=== PATIENT | male | born 1965 | race Caucasian/White ===

== ENCOUNTER 2018-02-25 17:13 | Emergency (ER) | payer OTHER ==
[2018-02-25 17:32] VITALS: RESP 18; TEMP 98.1
[2018-02-25 18:15] VITALS: BMI 29.7
[2018-02-25] MEDS ORDERED: Sodium Chloride 0.9% 1,000 ML IV STA (18:17)
--- NOTE | 2018-02-25 18:17 | ED PDOC ---
Arrival/HPI - General Time Seen by Provider: 02/25/18 18:11 Historian: Patient - History of Present Illness Narrative History of Present Illness (Text): 02/25/18 18:12 52 y/o male, pmh including cholecystitis/IBS, nkda, c/o epigastric abdominal pain x 1 day. Pt. stated that he started a new medication "Viberzi" for his IBS diarrhea yesterday, took a dose yesterday and today, developed the epigastric pain, called DR. Hernandez which told him to come to the ER to check his CMP panel. Pt. concerning about he might have pancreatitis. Pt. has no chest pain or shortness of breath, no flank pain, no urinary symptoms, no change in vision, no neck pain, no dizziness, no wheezing, no diarrhea, no nausea or vomiting, no other medical or psychological complaints. Past Medical History - Provider Review Nursing Documentation Reviewed: Yes Family/Social History - Physician Review Nursing Documentation Reviewed: Yes Family/Social History: Unknown Family HX Allergies/Home Meds Allergies/Adverse Reactions: Allergies No Known Allergies Allergy (Verified 02/25/18 18:15) Review of Systems - Review of Systems Constitutional: absent: Fatigue, Fevers Eyes: absent: Vision Changes ENT: absent: Hearing Changes Respiratory: absent: SOB, Cough Cardiovascular: absent: Chest Pain Gastrointestinal: Abdominal Pain. absent: Diarrhea, Nausea, Vomiting Musculoskeletal: absent: Arthralgias, Back Pain Skin: absent: Rash, Pruritis Neurological: absent: Headache, Dizziness Psychiatric: absent: Anxiety, Depression, Suicidal Ideation Physical Exam Vital Signs Reviewed: Yes Vital Signs Temp Pulse Resp BP Pulse Ox 02/25/18 17:31 98.1 F 65 18 141/94 H 99 Temperature: Afebrile Blood Pressure: Hypertensive Pulse: Regular Respiratory Rate: Normal Appearance: Positive for: Well-Appearing, Non-Toxic, Comfortable Pain Distress: Mild Mental Status: Positive for: Alert and Oriented X 3 - Systems Exam Head: Present: Atraumatic, Normocephalic Pupils: Present: PERRL Extroacular Muscles: Present: EOMI Conjunctiva: Present: Normal Mouth: Present: Moist Mucous Membranes Neck: Present: Normal Range of Motion Respiratory/Chest: Present: Clear to Auscultation, Good Air Exchange. No: Respiratory Distress, Accessory Muscle Use Cardiovascular: Present: Regular Rate and Rhythm, Normal S1, S2. No: Murmurs Abdomen: No: Tenderness, Distention, Peritoneal Signs, Rebound, Guarding Back: Present: Normal Inspection. No: CVA Tenderness, Midline Tenderness, Paraspinal Tenderness Upper Extremity: Present: Normal Inspection. No: Cyanosis, Edema Lower Extremity: Present: Normal Inspection. No: Edema Neurological: Present: GCS=15, CN II-XII Intact, Speech Normal, Motor Func Grossly Intact, Memory Normal Skin: Present: Warm, Dry, Normal Color. No: Rashes Psychiatric: Present: Alert, Oriented x 3, Normal Insight, Normal Concentration Medical Decision Making ED Course and Treatment: 02/25/18 18:21 Differential: gastritis vs. pancreatitis vs. fatty liver vs. liver failure -Labs/lipase/ua -abdominal sonogram -IVF/pepcid -Observe and reassess 02/25/18 20:39 -abdominal sonogram: Mild biliary ductal dilatation which may be within normal limits for post cholecystectomy state. Correlate with laboratory values. Consider MRCP if warranted. Incidental/non-acute findings are described above. -Labs are non-significant -LFT and lipase within normal limit. -UA show no UTI. -Case/labs/radiology result discussed with Dr. Ellsworth, recommend to discharge home. -Case/labs/radiology result discussed with Dr. Hernandez, PMD, recommend to discharge home and will see the patient tomorrow morning for follow up. -All labs/radiology result discussed with the patient, agreed on the treatment and follow up plan. -Pt.'s abdomen is soft, non-tender, no guarding, eating and drinking well, will discharge home. -Pt. has no pain now, talking on the phone, no facial expression of pain or discomfort. -Discharge home with pepcid, education on follow up with your own pmd Dr. Hernandez tomorrow, return to the ER for any new or worsening signs or symptoms. - Lab Interpretations Lab Results: 02/25/18 18:38 02/25/18 18:38 Lab Results 02/25/18 20:22: Urine Color Colorless, Urine Appearance Clear, Urine pH 7.0, Ur Specific [place] <= 1.005, Urine Protein Negative, Urine Glucose (UA) Negative, Urine Ketones Negative, Urine Blood Trace-lysed H, Urine Nitrate Negative, Urine Bilirubin Negative, Urine Urobilinogen 0.2, Ur Leukocyte Esterase Negative , Urine RBC Negative, Urine WBC Negative, Ur Epithelial Cells None, Urine Bacteria Neg 02/25/18 18:38: WBC 8.1, RBC 5.25, Hgb 15.4, Hct 42.9, MCV 81.7, MCH 29.3, MCHC 35.9, RDW 14.2, Plt Count 270, MPV 9.5, Gran % 42.1 L, Lymph % (Auto) 48.8 H, [place] % (Auto) 6.3 H, Eos % (Auto) 2.4, Baso % (Auto) 0.4, Gran # 3.40, Lymph # ( Auto) 3.9 H, [place] # (Auto) 0.5, Eos # (Auto) 0.2, Baso # (Auto) 0.03 02/25/18 18:38: Sodium 142, Potassium 3.9, Chloride 102, Carbon Dioxide 31, Anion Gap 13, BUN 16, Creatinine 1.1, Est GFR ( Amer) > 60, Est GFR (Non- Af Amer) > 60, Random Glucose 91, Calcium 9.4, Total Bilirubin 0.9, AST 35, ALT 32, Alkaline Phosphatase 82, Total Protein 7.8, Albumin 4.5, Globulin 3.3, Albumin/Globulin Ratio 1.3, Lipase 56 I have reviewed the lab results: Yes - RAD Interpretation Radiology Orders: 02/25/18 18:17 ABDOMEN COMPLETE [US] Stat Liver: Fatty infiltration. No definite mass. No intrahepatic ductal dilatation. Gallbladder: Cholecystectomy. Common bile duct: Up to 0.74 cm in diameter. No stones. Pancreas: Unremarkable as visualized. Kidneys: Normal echogenicity. No significant hydronephrosis. Spleen: No splenomegaly. Aorta: Unremarkable. No aneurysm. Inferior vena cava: Unremarkable. Free fluid: No significant free fluid. IMPRESSION: 1. Mild biliary ductal dilatation which may be within normal limits for post cholecystectomy state. Correlate with laboratory values. Consider MRCP if warranted. 2. Incidental/non-acute findings are described above. Thank you for allowing us to participate in the care of your patient. Dictated and Authenticated by: Maynor Slaughter MD 02/25/2018 7:57 PM Eastern Time ([place] & [place]) [employer] Manager: Radiologist - Medication Orders Current Medication Orders: Discontinued Medications Famotidine (Pepcid) 20 mg IVP STAT STA Stop: 02/25/18 18:18 Last Admin: 02/25/18 19:38 Dose: 20 mg IVP Administration Document 02/25/18 19:38 GMD (Rec: 02/25/18 19:39 GMD [id number]) Charges for Administration # of IVP Administrations 1 Sodium Chloride (Sodium Chloride 0.9%) 1,000 mls @ 999 mls/hr IV .Q1H1M STA Stop: 02/25/18 19:17 Last Admin: 02/25/18 19:39 Dose: 999 mls/hr eMAR Start Stop Document 02/25/18 19:39 GMD (Rec: 02/25/18 19:39 GMD [id number]) Intravenous Solution Start Date 02/25/18 Start Time 19:39 End Date 02/25/18 End time 20:40 Total Infusion Time 61 - PA / [employer] / Resident Statement MD/DO has reviewed & agrees with the documentation as recorded. Disposition/Present on Arrival - Present on Arrival Any Indicators Present on Arrival: No History of DVT/PE: No History of Uncontrolled Diabetes: No Urinary Catheter: No History of Decub. Ulcer: No - Disposition Have Diagnosis and Disposition been Completed?: Yes Diagnosis: General medical examination Disposition: HOME/ ROUTINE Disposition Time: 20:44 Patient Plan: Discharge Condition: GOOD Additional Instructions: -Discharge home with pepcid, education on follow up with your own pmd Dr. Hernandez tomorrow, return to the ER for any new or worsening signs or symptoms. Prescriptions: Famotidine [Pepcid] 20 mg PO BID #20 tab Referrals: Fernando Hernandez MD [Primary Care Provider] - Follow up with primary Nehemias Roberson MD [Staff Provider] - Follow up with primary Forms: WORK NOTE
[2018-02-25 19:09] LABS: BASO # 0.03 K/mm3 (0.0-2.0); BASO % 0.4 % (0.0-3.0); EOS # 0.2 (0.0-0.7); EOS % 2.4 % (1.5-5.0); GRAN # 3.4 (1.4-6.5); GRAN % 42.1 % (50.0-68.0); HEMOGLOBIN 15.4 g/dL (14.0-18.0); LYMPH # 3.9 (1.2-3.4); LYMPH % 48.8 % (22.0-35.0); MEAN CELL VOLUME 81.7 fl (80.0-105.0); MEAN CORPUSCULAR HEMOGLOBIN 29.3 pg (25.0-35.0); MEAN CORPUSCULAR HGB CONC 35.9 g/dl (31.0-37.0); MEAN PLATELET VOLUME 9.5 fl (7.0-11.0); MONO # 0.5 (0.1-0.6); MONO % 6.3 % (1.0-6.0); RBC 5.25 10^6/uL (3.5-6.1); RED CELL DISTRIBUTION WIDTH 14.2 % (11.5-14.5); WHITE BLOOD COUNT 8.1 10^3/ul (4.5-11.0)
[2018-02-25 19:15] LABS: ALB/GLOB RATIO 1.3 (1.1-1.8); ALBUMIN 4.5 g/dL (3.0-4.8); ALT/SGPT 32 U/L (7-56); AST/SGOT 35 U/L (17-59); BLOOD UREA NITROGEN 16 mg/dL (7-21); CALCIUM 9.4 mg/dL (8.4-10.5); GFR AFRICAN-AMERICAN > 60; GFR NON-AFRICAN AMERICAN > 60; LIPASE 56 U/L (23-300)
[2018-02-25 20:28] LABS: URINE BILIRUBIN NEGATIVE (NEGATIVE); URINE BLOOD TRACE-LYSED (NEGATIVE); URINE GLUCOSE (UA) NEGATIVE (NEGATIVE); URINE LEUKOCYTE ESTERASE NEGATIVE Leu/uL (NEGATIVE); URINE PROTEIN NEGATIVE mg/dL (<30 mg/dL); URINE UROBILINOGEN 0.2 E.U./dL (<1 E.U./dL)
[2018-02-25 20:29] LABS: URINE APPEARANCE CLEAR (CLEAR); URINE COLOR COLORLESS (YELLOW)
[2018-02-25 20:35] LABS: URINE BACTERIA NEG (NEG); URINE RBC NEGATIVE /hpf (0-2); URINE WBC NEGATIVE /hpf (0-6)
[2018-02-25 20:57] VITALS: BP 131/78; PULSE 68; O2SAT 98
--- NOTE | 2018-02-26 10:30 | US ---
Date of service: 02/25/2018 HISTORY: RUQ pain x 1 day COMPARISON: None. TECHNIQUE: Grayscale imaging was performed. FINDINGS: LIVER: Measures 17.0 cm. There is diffuse increased echogenicity of the liver parenchyma. No mass. No intrahepatic bile duct dilatation. GALLBLADDER: Surgically absent COMMON BILE DUCT: Measures 7.4 mm. No stones. Mild dilatation of the common bile duct is likely related to post cholecystectomy status. . PANCREAS: Unremarkable as visualized. No mass. No ductal dilatation. RIGHT KIDNEY: Measures 12.4cm. Normal echogenicity. No calculus, mass, or hydronephrosis. LEFT KIDNEY: Measures 12.2cm. Normal echogenicity. No calculus, mass, or hydronephrosis. SPLEEN: Normal in size and contour. No mass. AORTA: No aneurysmal dilatation. IVC: Unremarkable. OTHER FINDINGS: None. IMPRESSION: Mild hepatomegaly. Diffuse increased echogenicity in the liver may reflect hepatic steatosis however parenchymal infectious/ inflammatory etiologies cannot be entirely excluded. Clinical and laboratory correlation is advised.
== END 2018-02-25 20:57 | disposition home or self-care (01) ==
LOC: ED 17:13
DX: Z00.00 Encounter for general adult medical examination without abnormal findings (principal)
CPT/HCPCS: 76700; 80053; 81001; 83690; 85025; 96361; 96374; 99285; J7030